=== PATIENT | female | born 1990 | race Caucasian/White ===

== ENCOUNTER 2017-11-24 12:03 | Day surgery (SDC) | payer BC, SELFPAY ==
[~2017-11-24] VITALS: Ht 160 cm; Wt 76.3 kg
[~2017-11-24 12:03] MED LIST: NITR100 PO
[2017-11-24] MEDS ORDERED: ALBU90OI6 (12:44)
[2017-11-24] MEDS ORDERED: Sprintec1 EACH (12:46)
[2017-11-24] MEDS ORDERED: IBUP100S (12:47)
[2017-11-24] MEDS ORDERED: MOMENI (12:48)
== END 2017-11-24 15:43 | disposition home or self-care (01) ==
LOC: ORSCSDS 12:03
PROVIDERS: Obstetrics & Gynecology
PROC: 0WBH4ZX Excision of Retroperitoneum, Percutaneous Endoscopic Approach, Diagnostic (ICD-10-PCS; principal; 2017-11-24 14:00)
DX: R10.2 Pelvic and perineal pain (principal); E16.2 Hypoglycemia, unspecified; J45.909 Unspecified asthma, uncomplicated; Z79.899 Other long term (current) drug therapy; N80.3 Endometriosis of pelvic peritoneum
CPT/HCPCS: 88305; J0171; J2250; J2405; J3010; J7120

== ENCOUNTER → 2025-11-07 | Outpatient (CLI) | payer BC ==
[~2025-11-07] MED LIST changes: +ALBU90OI6; +IBUP100S; +MOMENI; +Sprintec1 EACH
[2025-11-08 14:14] LABS: Chlamydia Trachomatis Urine NOT DETECTED (NOT DETECT); Neisseria Gonorrhoea Urine NOT DETECTED (NOT DETECT)
== END ==
LOC: LAB 14:46 → LAB SHORT 14:46
PROVIDERS: Advanced Practice Midwife
DX: Z11.3 Encounter for screening for infections with a predominantly sexual mode of transmission (principal)
CPT/HCPCS: 87491; 87591